=== PATIENT | male | born 1970 | race Caucasian/White ===

== ENCOUNTER 2017-10-20 07:53 | Day surgery (SDC) | payer BC, OTHER ==
[2017-10-20] MEDS ORDERED: CEFAZOLIN 2 GM/50 ML (PMX) 50 ML IVPB (08:00)
[2017-10-20] MEDS ORDERED: SOD CHLORIDE 0.9% 1,000 ML IV (08:00)
[2017-10-20 08:55] LABS: ADD MAN DIFF? NO
[2017-10-20 09:00] LABS: BASOPHILS % 0.9 % (0.0-2.0); EOSINOPHILS # 0.3 10^3/ul (0.0-0.5); EOSINOPHILS % 6.5 % (0.0-7.0); HEMATOCRIT 40.1 % (42.0-52.0); LYMPHOCYTES % 43.4 % (15.0-51.0); MEAN CORPUSCULAR HEMOGLOBIN 26.5 pg (29.0-33.0); MEAN CORPUSCULAR HGB CONC 32.4 g/dl (32.0-37.0); MEAN CORPUSCULAR VOLUME 81.8 fl (82.0-101.0); MEAN PLATELET VOLUME 9.6 fl (7.4-10.4); MONOCYTE # 0.4 10^3/ul (0.3-0.9); MONOCYTES % 9.1 % (0.0-11.0); NEUTROPHIL # 1.8 10^3/ul (1.6-7.5); NEUTROPHILS % 39.7 % (39.0-77.0); PLATELET COUNT 196 10^3/UL (140-415); RED CELL DISTRIBUTION WIDTH 13.2 % (11.5-14.5)
[2017-10-20 09:00] LABS: WHITE BLOOD COUNT 4.6 10^3/ul (4.8-10.8)
[2017-10-20] MEDS ORDERED: ROCURONIUM 50 MG INJ (09:27)
[2017-10-20] MEDS ORDERED: FENTAnyl 50 MCG/ML VIAL (09:27)
[2017-10-20] MEDS ORDERED: MIDAZOLAM 1 MG/ML 2 ML INJ (09:27)
[2017-10-20] MEDS ORDERED: CEFAZOLIN 1 GM INJ (09:27)
[2017-10-20] MEDS ORDERED: PROPOFOL 20 ML (09:27)
[2017-10-20 09:45] LABS: INR 0.92; PROTIME 12.4 Sec (11.9-14.9)
[2017-10-20 09:48] LABS: ALANINE AMINOTRANSFERASE 50 IU/L (13-69); ALBUMIN 4.7 g/dl (3.3-4.9); ALBUMIN/GLOBULIN RATIO 1.42; ALKALINE PHOSPHATASE 59 IU/L (42-121); ANION GAP 15 (8-16); ASPARTATE AMINO TRANSFERASE 27 IU/L (15-46); BILIRUBIN,INDIRECT 0.3 mg/dl (0-1.1); BILIRUBIN,TOTAL 0.3 mg/dl (0.2-1.3); CARBON DIOXIDE 26 mmol/L (21-31); CHLORIDE 105 mmol/L (97-110); GLUCOSE 104 mg/dl (70-220)
[2017-10-20 09:51] LABS: BLOOD UREA NITROGEN 18 mg/dl (7-20); CALCIUM 9.5 mg/dl (8.4-10.2); CREATININE 0.84 mg/dl (0.61-1.24); SODIUM 142 mmol/L (135-144)
[2017-10-20] MEDS ORDERED: BUPIVACAINE 0.5% (SDV) 30 ML INJ (10:23)
[2017-10-20] MEDS ORDERED: ONDANSETRON 4 MG INJ (10:29)
[2017-10-20] MEDS ORDERED: DEXAMETHASONE 4 MG/ML 1 ML INJ (10:29)
[2017-10-20] MEDS ORDERED: METOCLOPRAMIDE 10 MG INJ (10:29)
[2017-10-20] MEDS ORDERED: KETOROLAC 30 MG INJ (10:29)
[2017-10-20] MEDS ORDERED: SUGAMMADEX SODIUM 200 MG/2 ML VIAL IV (10:29)
[2017-10-20] MEDS: BUPIVACAINE 0.5% 30 ML VIAL INJ (10:35)
[2017-10-20] MEDS ORDERED: MEPERIDINE 25 MG INJ IV (11:00)
[2017-10-20] MEDS ORDERED: HYDROmorphONE (0.2 MG/ML) 10ML SYG IV ×3 (11:00)
[2017-10-20] MEDS ORDERED: EPHEDrine SULFATE 50 MG/5 ML SYG IV (11:00)
[2017-10-20] MEDS ORDERED: METOCLOPRAMIDE 10 MG INJ IV (11:00)
[2017-10-20] MEDS ORDERED: FENTAnyl 50 MCG/ML VIAL IV ×3 (11:00)
[2017-10-20] MEDS ORDERED: DIPHENHYDRAMINE 50 MG INJ IV (11:00)
[2017-10-20] MEDS ORDERED: OXYCODONE/ACETAMINOPHEN (5/325) TAB PO (11:00)
[2017-10-20] MEDS ORDERED: ONDANSETRON 4 MG INJ IV (11:00)
== END 2017-10-20 11:56 | disposition home or self-care (01) ==
LOC: SDS 07:53
DX: K62.4 Stenosis of anus and rectum (principal)
CPT/HCPCS: 45905; 80053; 85025; 85610; 85730